=== PATIENT | female | born 2000 | race Caucasian/White ===

== ENCOUNTER 2020-04-23 07:20 | Day surgery (SDC) | payer BC ==
[2020-04-23] MEDS ORDERED: fentaNYL 100 MCG/2 ML SDV IV ONE (07:21)
[2020-04-23] MEDS ORDERED: Midazolam 1 MG/ML 2 ML SDV IV ONE (07:21)
[2020-04-23] MEDS ORDERED: Ketamine 500 mg/10 ML MDV IV ONE (07:21)
[2020-04-23] MEDS ORDERED: Ondansetron 4 MG/2 ML SDV IVPUSH ONE (07:21)
[2020-04-23] MEDS ORDERED: Propofol 200 MG/20 ML SDV IV ONE (07:21)
[2020-04-23] MEDS ORDERED: Sodium Chloride 0.9% 10 ML Syringe FLUSH PRN (07:45)
[2020-04-23] MEDS ORDERED: Lactated Ringers 1,000 ML IV SCH (07:45)
--- NOTE | 2020-04-23 07:48 | PCM.HP.2 ---
H&P History of Present Illness - General Date of Service: 04/23/20 - History of Present Illness Initial Comments - Free Text/Narative: 19 yo wf who was seen earlier this year for a lipoma on the lower chest upper abd wall. Present for about a year. It is greater than 5 cm in its largest dimension. This located on the left side. Past Medical History Cardiovascular History: Reports: None Respiratory History: Reports: None Psychiatric History: Reports: Depression Endocrine/Metabolic History: Reports: Other (See Below) (obesity) - Past Surgical History HEENT Surgical History: Reports: Adenoidectomy Social & Family History - Family History Family Medical History: Noncontributory H&P Review of Systems - Review of Systems: Review Of Systems: See Below General: Reports: No Symptoms HEENT: Reports: No Symptoms Pulmonary: Reports: No Symptoms Cardiovascular: Reports: No Symptoms Gastrointestinal: Reports: No Symptoms Genitourinary: Reports: No Symptoms Musculoskeletal: Reports: No Symptoms Skin: Reports: No Symptoms Psychiatric: Reports: No Symptoms Neurological: Reports: No Symptoms Exam - Exam Exam: See Below - Exam General: Alert, Oriented, Cooperative Lungs: Clear to Auscultation, Normal Respiratory Effort Cardiovascular: Regular Rate, Regular Rhythm GI/Abdominal Exam: Normal Bowel Sounds, Soft, Non-Tender Skin Alteration Location (Drawings Not To Scale): 1 - 5x 4 cm soft tissue mass consistent with a lipoma Neuro Extensive - Mental Status: Alert, Normal Mood/Affect Psychiatric: Alert *Q Meaningful Use (ADM) - VTE *Q VTE Pharmacological Contraindications *Q: Patient Scheduled Surgery - Problem List (1) Lipoma of anterior chest wall SNOMED Code(s): 337061397 ICD Code: D17.1 - BENIGN LIPOMATOUS NEOPLASM OF SKIN, SUBCU OF TRUNK Status : Acute Current Visit: Yes Problem List Initiated/Reviewed/Updated: Yes Assessment/Plan Comment:: For excisional biopsy under local mac. Procedure and risks explained to the patient to include bleeding, and infection. She expressed understanding and asks us to proceed. - Mortality Measure Prognosis:: Good
[2020-04-23] MEDS ORDERED: Bupivacaine 0.5% 30 ML SDV INJECT ONE (08:30)
[2020-04-23] MEDS ORDERED: Lidocaine 1% with EPINEPHrine 1:100,000 20 ML MDV INJECT ONE (08:30)
--- NOTE | 2020-04-23 08:55 | PCM.OPNOTE ---
- General Post-Op/Procedure Note Date of Surgery/Procedure: 04/23/20 Operative Procedure(s): excision of ant chest wall lipoma left side Findings: 5x3x2 cm lipoma Pre Op Diagnosis: chest wall lipoma (left side, costal margin) Post-Op Diagnosis: Same Anesthesia Technique: Local (19 ml 1 % lido with epi), MAC Primary Surgeon: Hayder Solano Anesthesia Provider: Billie Milan Pathology: as above EBL in mLs: 1 Complications: None Condition: Good Free Text/Narrative:: see dictation
[2020-04-23] MEDS ORDERED: Ketorolac 30 MG/ML SDV IVPUSH ONE (08:57)
--- NOTE | 2020-04-24 10:39 | OR ---
DATE OF OPERATION: 04/23/2020 SURGEON: Hayder Solano MD PROCEDURE PERFORMED: Excision of chest wall lipoma. PREOPERATIVE DIAGNOSIS: Lipoma of the left anterior chest wall, near the costal margin. POSTOPERATIVE DIAGNOSIS: Lipoma of the left anterior chest wall, near the costal margin. INDICATIONS FOR PROCEDURE: This is a 19-year-old white female who has a noticeable asymmetry and a palpable fullness along the left costal margin, just below her breast, of the left chest wall. This appears to be consistent with a lipoma. She was offered and accepted excision. INTRAOPERATIVE FINDINGS: A roughly 5 x 3 x 2 cm lipoma was excised. A total of 19 mL of a 1:1 mixture of 1% lidocaine with epinephrine and 0.5% bupivacaine was used. DESCRIPTION OF PROCEDURE: After an excellent IV sedation was administered, the area was prepped and draped in the usual sterile manner. Our local was used to infiltrate the planned incision site, which was approximately a 4-cm incision along the left costal margin. The skin and the underlying subcu fat were divided sharply, and the lipoma itself was encountered. This was carefully excised from the surrounding tissue and taken down to the level of the fascia of the insertion of the rectus muscle. The specimen was passed off the field. The area was irrigated and after assuring hemostasis, the wound was then closed with a running 4-0 Vicryl. Steri-Strips were applied. Needle, sponge, and instrument counts were reported as correct. The patient lost approximately 1 mL, if that, of blood. /[id number] /MODL
== END 2020-04-23 10:00 | disposition home or self-care (01) ==
LOC: FB.SDS 07:20
PROVIDERS: ATTEND Surgery
DX: D17.1 Benign lipomatous neoplasm of skin and subcutaneous tissue of trunk (principal); F32.9 Major depressive disorder, single episode, unspecified; E66.9 Obesity, unspecified; F98.8 Other specified behavioral and emotional disorders with onset usually occurring in childhood and adolescence; R55 Syncope and collapse; L70.9 Acne, unspecified; Z87.09 Personal history of other diseases of the respiratory system
CPT/HCPCS: 21931; 81025; 88304; J1885; J2250; J2405; J2704; J3010; J3490; J7120